=== PATIENT | female | born 1970 | race Two or more races ===

== ENCOUNTER 2022-01-07 07:37 | Emergency (ER) | payer MEDICAID ==
[~2022-01-07] VITALS: Ht 152.4 cm; Wt 81.6 kg
[2022-01-07] MEDS ORDERED: PRED50TA PO (07:52)
[2022-01-07] MEDS ORDERED: ACYC200C31 PO (07:52)
--- NOTE | 2022-01-07 08:00 | NUR ---
PT SEEN BY DR BAGLEY AT BEDSIDE
--- NOTE | 2022-01-07 08:07 | NUR ---
Patient discharged to home in stable condition. Written and verbal after care instructions given. Patient verbalizes understanding of instruction. 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
[2022-01-07 08:09] VITALS: BP 108/75
== END 2022-01-07 08:10 | disposition home or self-care (01) ==
LOC: ER 07:37
DX: G51.0 Bell's palsy (principal)

== ENCOUNTER 2023-11-27 14:25 | Emergency (ER) | payer MEDICAID ==
[~2023-11-27] VITALS: Ht 152.4 cm; Wt 86.6 kg
[~2023-11-27 14:25] MED LIST: ACYC200C31 PO; PRED50TA PO
[2023-11-27] MEDS ORDERED: KETOROLAC TROMETHAMINE 15 MG/ML VIAL ONE (15:06)
[2023-11-27] MEDS: KETOROLAC TROMETHAMINE 15 MG/ML VIAL IM ONE (15:11)
[2023-11-27] MEDS ORDERED: NAPR-1164 PO (15:41)
[2023-11-27 16:23] VITALS: BP 99/59; TEMP 98.2; O2SAT 97
== END 2023-11-27 16:23 | disposition home or self-care (01) ==
LOC: ER 14:35
DX: S46.011A Strain of muscle(s) and tendon(s) of the rotator cuff of right shoulder, initial encounter (principal); E11.9 Type 2 diabetes mellitus without complications; Z79.52 Long term (current) use of systemic steroids; X58.XXXA Exposure to other specified factors, initial encounter; Y93.89 Activity, other specified; Y92.89 Other specified places as the place of occurrence of the external cause; Y99.8 Other external cause status
CPT/HCPCS: 99283; 96372; 73030; J1885